=== PATIENT | female | born 1990 | race Hispanic/Latino ===

== ENCOUNTER 2018-06-11 15:36 | Emergency (ER) | payer OTHER ==
[2018-06-11 16:11] LABS: APPEARANCE,URINE Turbid (CLEAR); BILIRUBIN,URINE Negative (NEGATIVE); COLOR,URINE Yellow (YELLOW); GLUCOSE, URINE (UA) Negative (NEGATIVE); KETONES,URINE Negative (NEGATIVE); LEUKOCYTE ESTERASE ,URINE Small (NEGATIVE); NITRATE,URINE Negative (NEGATIVE); OCCULT BLOOD,URINE Small (NEGATIVE); PH,URINE >=9.0 (5.0-8.0); PROTEIN,URINE Negative (NEGATIVE)
[2018-06-11 16:21] LABS: HCG,QUAL RESULT NEGATIVE (NEGATIVE)
[2018-06-11 16:22] LABS: BASOPHILS % (AUTO) 0.4 % (0.0-5.0); EOSINOPHILS % (AUTO) 0.9 % (0.0-8.0); HEMATOCRIT 37.4 % (36-48); LYMPHOCYTES % (AUTO) 25.5 % (21.0-51.0); MEAN CORPUSCULAR HEMOGLOBIN 26.7 pg (27.0-33.0); MEAN CORPUSCULAR HGB CONC 33.4 g/dL (32.0-36.0); MONOCYTES % (AUTO) 4.4 % (3.0-13.0); NEUTROPHILS % (AUTO) 68.8 % (40.0-77.0); PLATELET COUNT (AUTO) 317 K/uL (130-400); RED BLOOD CELL COUNT(AUTO) 4.67 MIL/uL (4.00-5.50); RED CELL DISTRIBUTION WIDTH 15.2 % (11.0-15.5); WHITE BLOOD COUNT (AUTO) 9.8 K/uL (4.8-10.8)
[2018-06-11 16:30] LABS: AMORPHOUS SEDIMENT,UR Moderate /LPF (None Seen); BACTERIA,URINE Few /HPF (None Seen); RBC,URINE None Seen /HPF (0-1)
[2018-06-11 16:41] LABS: CREATININE 0.9 mg/dL (0.5-1.5); POTASSIUM 3.6 mmol/L (3.5-5.1)
[2018-06-11 16:44] LABS: ALBUMIN 3.4 g/dL (3.5-5.0); BILIRUBIN,TOTAL 0.2 mg/dL (0.2-1.0); TOTAL PROTEIN, SERUM 7.6 g/dL (6.0-8.3)
[2018-06-11] MEDS ORDERED: DICYCLOMINE HCL 20 MG TAB ONE (17:07)
== END 2018-06-11 18:54 | disposition home or self-care (01) ==
LOC: EDH 15:36
DX: K80.70 Calculus of gallbladder and bile duct without cholecystitis without obstruction (principal)
CPT/HCPCS: 36415; 76705; 80053; 81001; 81025; 83690; 85025; 93005

== ENCOUNTER 2018-08-12 05:25 | Day surgery (SDC) | payer OTHER ==
[2018-08-09 15:34] VITALS: BP 134/75
[2018-08-12] VITALS (19 sets, daily range): BP systolic 110–155; BP diastolic 61–90
[~2018-08-12] VITALS: Ht 174 cm; Wt 119.2 kg
[2018-08-12] MEDS ORDERED: LACTATED RINGERS 1000ML 1,000 ML IV ONE (05:58)
[2018-08-12] MEDS ORDERED: CEFAZOLIN SODIUM 1 GM VIAL IVP SCH (06:00)
[2018-08-12] MEDS ORDERED: BUPIVACAINE/EPI/PF 0.5% 30ML VIAL IJ ONE (06:11)
[2018-08-12] MEDS ORDERED: ONDA4TAB4 PO (06:16)
[2018-08-12] MEDS ORDERED: IBUP-2070 PO (06:16)
[2018-08-12] MEDS ORDERED: FAMO40TA75 PO (06:16)
[2018-08-12] MEDS ORDERED: LIDOCAINE PF 2% 5ML ABBOJECT ONE (06:30)
[2018-08-12] MEDS ORDERED: FENTANYL CITRATE PF 50 MCG/1 ML 2ML VIAL ONE (06:30)
[2018-08-12] MEDS ORDERED: PROPOFOL 10 MG/ML 20ML VIAL IV ONE (06:30)
[2018-08-12] MEDS ORDERED: ONDANSETRON HCL 4 MG/2 ML VIAL ONE ×2 (06:30→07:47)
[2018-08-12] MEDS ORDERED: CEFAZOLIN SODIUM 1 GM VIAL IVP PRN (06:30)
[2018-08-12] MEDS ORDERED: DEXAMETHASONE SOD PHOSPHATE 10MG/ML 1ML VIAL ONE (06:30)
[2018-08-12] MEDS ORDERED: MIDAZOLAM HCL 1 MG/ML 2ML VIAL ONE (06:30)
[2018-08-12] MEDS ORDERED: IOHEXOL-350 50ML VIAL IV ONE (06:32)
[2018-08-12] MEDS ORDERED: ROCURONIUM 10MG/1ML SYR 10 MG/ML ML ONE (06:39)
[2018-08-12] MEDS ORDERED: GLYCOPYRROLATE 1 MG/5 ML SYRINGE ONE (07:36)
[2018-08-12] MEDS ORDERED: NEOSTIGMINE 5MG/5ML SYR IV ONE (07:36)
[2018-08-12] MEDS ORDERED: MEPERIDINE-PF 25 MG/ML SYG ONE ×2 (07:47→07:54)
--- NOTE | 2018-08-12 08:42 | NUR ---
RECEIVE PT RECEIVED FOM PACU VIA STRETCHER AWAKE BUT DROWSY, ORIENTED X3. BAND AID DRESSINGS/STERI STRIPS X4 TO ABDOMEN DRY AND INTACT, NO OOZING NO SWELLING NOTED. ABDOMEN SOFT. PT COMPLAINING PAIN TO INCISION SITE RIGHT SIDE ABDOMEN , SCALE OF 7. WILL CALL FOR PAIN MEDICATION. WILL CONTINUE TO MONITOR PT. CALL ESPINOZA WITHIN REACH, WILL CALL DAD TO COME IN TO ROOM.
--- NOTE | 2018-08-12 09:00 | NUR ---
MED CALLED BASSEM AYALA TO NOTIFY PAIN IS STILL IN PAIN TO INCISION SITE, SCALE OF 7, WAS GIVEN DEMEROL 25MG IV TWICE IN PACU, PT DROWSY. MAY GIVE TORADOL 30 MG IVP X1 NOW.
[2018-08-12] MEDS ORDERED: KETOROLAC TROMETHAMINE 60 MG/2 ML VIAL ONE (09:01)
--- NOTE | 2018-08-12 09:35 | NUR ---
ASSESS PT STATES SHE FEELS BETTER, PAIN IS LESS. PT APPEARS CALM AT THIS TIME.
--- NOTE | 2018-08-12 09:45 | NUR ---
DISCHARGE PT DISCHARGED VIA WHEELCHAIR WITH FATHER. PT STATES SHE FEELS BETTER AND IS READY TO GO HOME. ABDOMEN REMAINS SOFT. BAND AIDS/STERI STRIPS X4 DRY AND INTACT, NO OOZING NO SWELLING NOTED. DISCHARGE INSTRUCTIONS GIVEN TO FATHER, VERBALIZED UNDERSTANDING.
== END 2018-08-12 09:45 | disposition home or self-care (01) ==
LOC: DAH 05:25
PROVIDERS: ATTEND Surgery
DX: K80.10 Calculus of gallbladder with chronic cholecystitis without obstruction (principal); Z68.39 Body mass index [BMI] 39.0-39.9, adult; Z79.899 Other long term (current) drug therapy; E66.01 Morbid (severe) obesity due to excess calories
CPT/HCPCS: 36415; 47562; 84703; A4218; A4450; A4649 ×2; C1758; J0690; J1100; J1885; J2001; J2175 ×2; J2250; J2405 ×2; J2704; J2710; J3010; J3490 ×2; J7030; J7120 ×2; Q9967